=== PATIENT | female | born 1950 | race Two or more races ===

== ENCOUNTER → 2017-07-25 | Outpatient (CLI) | payer OTHER ==
--- NOTE | 2017-07-25 12:39 | RAD ---
Thyroid ultrasound, 07/25/2017: History: Multinodular goiter The right lobe of the gland measures 4.4 x 1.5 x 1.2 cm while the left lobe of the gland measures 3.7 x 1.6 x 1.1 cm. There is a smooth oval, predominantly cystic mass in the right lobe of the gland. It measures 1.7 x 0.9 x 0.9 cm. There are thin internal septations. There is color flow along at least one of the septations. There is a 6 mm oval-shaped nodule in the upper pole the left lobe of the gland which also appears to be predominantly cystic. There is vascularity along its margin.. There appears to be a tiny partial septation. A tiny oval-shaped 4 mm nodule located more superiorly in the left lobe of the gland is slightly hypoechoic relative to the adjacent thyroid tissue. It demonstrates smooth margins. It is wider than tall. IMPRESSION: Multinodular thyroid gland as described above. The sonographic findings are nonspecific, however, no highly suspicious sonographic features are evident. Ultrasound follow-up is suggested.
--- NOTE | 2017-07-25 15:12 | RAD ---
DATE: 07/25/2017 EXAM: DIGITAL SCREEN BILAT W/CAD HISTORY: Asymptomatic screening mammogram. Mother and sister with history of breast cancer. COMPARISON: None available. This study was interpreted with the benefit of Computerized Aided Detection (CAD). The breast parenchyma is heterogeneously dense, which could reduce sensitivity of mammography. Breast parenchyma level C. FINDINGS: Bilateral CC and MLO views of the breasts were performed. Right breast: There is a group of calcifications in the slightly inner slightly outer right breast at posterior depth, close to the posterior nipple line on both CC and MLO views. Recommend additional images to include true lateral, spot magnification true lateral and CC views of the right breast. Left breast: There are no suspicious microcalcifications, masses or areas of architectural distortion. IMPRESSION: 1. Incomplete right mammogram. Additional views are recommended, as above. Neck site 2. Negative left mammogram. BI-RADS CATEGORY: 0 INCOMPLETE: NEEDS ADDITIONAL IMAGING EVALUATION AND/OR PRIOR MAMMOGRAMS FOR COMPARISON. RECOMMENDED FOLLOW-UP: ADD ADDITIONAL IMAGING PQRS compliance statement: Mammography is a sensitive method for finding small breast cancers, but it does not detect them all and is not a substitute for careful clinical examination. A negative mammogram does not negate a clinically suspicious finding and should not result in delay in biopsying a clinically suspicious abnormality. "Our facility is accredited by the [employer] Mammography Program."
== END | disposition home or self-care (01) ==
LOC: US 09:28
PROVIDERS: ATTEND Nurse Practitioner Adult Health
DX: Z12.31 Encounter for screening mammogram for malignant neoplasm of breast (principal); E04.2 Nontoxic multinodular goiter; E07.89 Other specified disorders of thyroid; R32 Unspecified urinary incontinence; R30.0 Dysuria; R39.15 Urgency of urination; Z80.3 Family history of malignant neoplasm of breast
CPT/HCPCS: 76536; G0202; 77067

== ENCOUNTER → 2017-08-02 | Outpatient (CLI) | payer OTHER ==
--- NOTE | 2017-08-02 13:03 | RAD ---
DATE: 08/02/2017 EXAM: DIGITAL DIAGNOSTIC RT HISTORY: Suspicious screening study COMPARISON: 07/25/2017 This study was interpreted with the benefit of Computerized Aided Detection (CAD). The breast parenchyma is heterogeneously dense, which could reduce sensitivity of mammography. Breast parenchyma level C. Findings: Additional views of the right breast were obtained and correlated with the screening study. They confirm the presence of a cluster of microcalcifications at the 1:00 location posteriorly. These are best demonstrated on the mediolateral magnification view. These are pleomorphic with irregular margins. There is no teacup type layering. The findings are mildly suspicious for DCIS. Several other single coarse type calcifications are seen in other portions of the right breast. IMPRESSION: Suspicious microcalcifications as described above. Stereotactic biopsy is suggested for further evaluation. BI-RADS CATEGORY: 4 SUSPICIOUS ABNORMALITY- BIOPSY SHOULD BE CONSIDERED RECOMMENDED FOLLOW-UP: BIO BIOPSY RECOMMENDED Note: The patient was notified of the recommendation for biopsy by the cytogenetic technologist at the time of the exam. She will follow-up with the ordering provider. PQRS compliance statement: Patient information was entered into a reminder system with a target due date for the next mammogram. Mammography is a sensitive method for finding small breast cancers, but it does not detect them all and is not a substitute for careful clinical examination. A negative mammogram does not negate a clinically suspicious finding and should not result in delay in biopsying a clinically suspicious abnormality. "Our facility is accredited by the [employer] Mammography Program."
== END | disposition home or self-care (01) ==
LOC: MAMMO 08:19
PROVIDERS: ATTEND Nurse Practitioner Adult Health
DX: R92.0 Mammographic microcalcification found on diagnostic imaging of breast (principal)
CPT/HCPCS: G0206; 77065

== ENCOUNTER → 2019-11-12 | Outpatient (CLI) | payer MEDICARE, OTHER ==
--- NOTE | 2019-11-12 10:03 | RAD ---
DATE: November 12, 2019 EXAM: DIGITAL SCREEN BILAT W/CAD HISTORY: Screening study. COMPARISON: 2017 This study was interpreted with the benefit of Computerized Aided Detection (CAD). FINDINGS: Breast Density: HETERO The breast parenchyma is heterogenously dense, which could reduce sensitivity of mammography. Breast parenchyma level C.. There are no dominant suspicious masses, suspicious microcalcifications or evidence of architectural distortion. Previously seen group of calcifications within the posterior central aspect of the right breast have been surgically removed and a biopsy clip is present here. IMPRESSION: No mammographic indicators for malignancy. BI-RADS CATEGORY: 2 BENIGN FINDING RECOMMENDED FOLLOW-UP: 12M 12 MONTH FOLLOW-UP PQRS compliance statement: Patient information was entered into a reminder system with a target due date November 13, 2020 for the next mammogram. Mammography is a sensitive method for finding small breast cancers, but it does not detect them all and is not a substitute for careful clinical examination. A negative mammogram does not negate a clinically suspicious finding and should not result in delay in biopsying a clinically suspicious abnormality. "Our facility is accredited by the [employer] Mammography Program." The patient's breast density may affect the ability of mammography to detect breast cancer. There are 4 categories of breast density, A, B, C and D. Breast density A means that most of the breast tissue is replaced with adipose tissue and therefore is not dense. Breast density B means that the breast tissue is mildly dense and scattered. Breast density C means that the breast tissue is heterogeneously dense. Breast density D means that the breast tissue is very dense. Breast densities especially C and D may decrease the sensitivity of mammography to detect breast cancer. Therefore, the patient may benefit from 3-D breast mammography (3D breast tomography) as a part of their screening mammogram. Insurance may or may not pay for this additional imaging. The patient's breast density based on today's mammogram is category C.
== END | disposition home or self-care (01) ==
LOC: MAMMO 08:06
PROVIDERS: ATTEND Nurse Practitioner Adult Health
DX: Z12.31 Encounter for screening mammogram for malignant neoplasm of breast (principal); N64.89 Other specified disorders of breast
CPT/HCPCS: 77067

== ENCOUNTER → 2019-11-26 | Outpatient (CLI) | payer MEDICARE ==
--- NOTE | 2019-11-26 15:38 | RAD ---
Thyroid sonography Clinical indications: Follow-up of thyroid nodules COMPARISON: July 25, 2017. FINDINGS: The longitudinal and AP and transverse dimensions of the right lobe are 4.5 cm and 1.1 cm and 1.8 cm respectively. There is a complex cystic lesion with septations involving the mid aspect of the right lobe measuring 17 mm in greatest dimension. This is unchanged. The longitudinal and AP and transverse dimensions of the left lobe are 4.5 cm and 1.2 cm and 1.6 cm respectively. Small complex cyst is seen within the upper pole measuring 7 mm. This measured 6 mm previously. There is a tiny hypoechoic nodule within the upper pole measuring 4 mm. This measured 4 mm previously. Just inferior to the inferior pole of the left lobe is a lymph node measuring 11 mm. This demonstrates normal lymph node sonographic architecture. The isthmus measures 1.8 mm in thickness. IMPRESSION: No change in size of bilateral cystic nodules. Electronically signed by: Lemuel Sánchez MD (11/26/2019 3:35 PM) [facility] [place]
--- NOTE | 2019-11-26 15:52 | RAD ---
Indication: Postmenopausal screening for osteoporosis. COMPARISON: None available. Bone Density: -BMD: (g/cm2) - AP Spine Total (L1-L4).......... 0.894. - Total right Hip................. 0.749. Neck: 0.623 T-Score: - AP Spine Total (L1-L4)......... -2.4. - Total right Hip................. -1.7. Neck: -2.5 Z-Score: - AP Spine Total (L1-L4).......... -0.5. - Total right Hip................. - 0.1. World Health Organization criteria for BMD interpretation classify patients as Normal (T-score at or above -1.0), Osteopenic (T-score between -1.0 and -2.5), or Osteoporotic (T-score at or below -2.5). Impression: 1. AP Spine Total L1-L4--- osteopenia. 2. Total right Hip--- osteopenia. Neck: Osteoporosis. Electronically signed by: Lemuel Sánchez MD (11/26/2019 3:49 PM) [facility] – [place]
== END | disposition home or self-care (01) ==
LOC: DXRAD 08:58
PROVIDERS: ATTEND Nurse Practitioner Adult Health
DX: M81.0 Age-related osteoporosis without current pathological fracture (principal); M85.88 Other specified disorders of bone density and structure, other site; E04.2 Nontoxic multinodular goiter; Z78.0 Asymptomatic menopausal state
CPT/HCPCS: 76536; 77080

== ENCOUNTER → 2021-02-03 | Outpatient (CLI) | payer MEDICARE ==
--- NOTE | 2021-02-03 13:11 | RAD ---
INDICATION: 71 years of age asymptomatic female patient presents for screening mammography. TECHNIQUE: Full field craniocaudal and mediolateral oblique images of both breasts were obtained usi ng digital technique with tomosynthesis and also analyzed with computer-aided detection software. COMPARISON: Prior mammographic imaging dating back to 11/12/2019 08/02/2017 07/25/2017. BREAST COMPOSITION: Category C: The breast tissue is heterogeneously dense, which could obscure detec tion of small masses. FINDINGS: Benign calcifications are present. The parenchymal pattern appears stable. No suspicious masses, microcalcifications or architectural distortion is present to suggest malignanc y in either breast. The visualized axillae are unremarkable. IMPRESSION: No mammographic evidence of malignancy. RECOMMENDATION: Annual screening mammography is recommended, unless clinically indicated sooner based on symptoms or change in physical exam. BIRADS 2: BENIGN This study was interpreted with the benefit of Computerized Aided Detection (CAD). ?Your patient's mammogram demonstrates that she has dense breast tissue (breast density category C or D), which could hide abnormalities, and if she has other risk factors for breast cancer that have be en identified, she might benefit from supplemental screening tests that may be suggested by you as he r ordering physician. Dense breast tissue, in and of itself, is a relatively common condition. Theref ore, this information is not provided to cause undue concern, but rather to raise your awareness and to promote discussion with your patient regarding the presence of other risk factors, in addition to dense breast tissue. Your patient's mammography results will be sent to her. Patient information is entered into the reminder system with a target due date for the next screening mammogram. Mammography is the most sensitive method for finding small breast cancers, but it does not detect the m all and is not a substitute for careful clinical examination. A negative mammogram does not negate a clinically suspicious finding and should not result in delay in biopsying a clinically suspicious a bnormality. "Our facility is accredited by the [employer] Mammography Program." Electronically signed by: Dino Alexander MD (02/03/2021 1:09 PM) [facility]
== END ==
LOC: MAMMO 07:46
PROVIDERS: ATTEND Nurse Practitioner Adult Health
DX: Z12.31 Encounter for screening mammogram for malignant neoplasm of breast (principal)
CPT/HCPCS: 77067

== ENCOUNTER → 2021-04-13 | Outpatient (CLI) | payer MEDICARE ==
--- NOTE | 2021-04-13 10:28 | RAD ---
EXAM: Thyroid sonogram. HISTORY: Multinodular goiter. TECHNIQUE: Sonographic imaging of the thyroid was performed. COMPARISON: 11/26/2019. FINDINGS: The right thyroid lobe measures 5.0 x 1.5 x 1.1 cm. The left thyroid lobe measures 4.3 x 1. 7 x 1.0 cm. The thyroid isthmus measures 2 mm. The thyroid parenchyma is slightly heterogeneous. Ther e are tiny bilateral thyroid colloid cysts. There is a solid-appearing hypoechoic nodule within the s uperior left thyroid lobe measuring 6 x 4 x 2 mm. IMPRESSION: 1. 6 mm solid-appearing left thyroid nodule. TI-RADS category 4. Follow up is not routinely recommend ed for category 4 nodules of this size. However, follow-up can obtain one year if there is clinical c oncern. 2. Slightly heterogeneous thyroid parenchyma and tiny benign bilateral colloid cysts. Electronically signed by: Aure Corea MD (04/13/2021 10:25 AM) [id number]
== END ==
LOC: US 09:52
PROVIDERS: ATTEND Nurse Practitioner Adult Health
DX: E04.2 Nontoxic multinodular goiter (principal)
CPT/HCPCS: 76536